=== PATIENT | female | born 1975 | race Caucasian/White ===

== ENCOUNTER 2019-11-05 09:10 | Emergency (ER) | payer OTHER ==
[~2019-11-05] VITALS: Ht 160 cm; Wt 47.6 kg
[2019-11-05 09:31] LABS: URINE BILIRUBIN NEGATIVE (Negative); URINE BLOOD NEGATIVE (Negative); URINE CLARITY CLEAR; URINE COLOR YELLOW; URINE GLUCOSE-RANDOM* NEGATIVE (Negative); URINE KETONES NEGATIVE (Negative); URINE LEUKOCYTES-REFLEX NEGATIVE (Negative); URINE NITRITE-REFLEX NEGATIVE (Negative); URINE PROTEIN (DIPSTICK) TRACE (Negative); URINE SPECIFIC GRAVITY >= 1.030 (1.005-1.035); URINE UROBILINOGEN 0.2 E.U./dl (0.2-1.0)
[2019-11-05 09:39] LABS: AMP/METHAMP POSITIVE (Negative); BARBITURATES Negative (Negative); BENZODIAZEPINES Negative (Negative); COCAINE Negative (Negative); METHADONE Negative (Negative); OPIATES Negative (Negative); PCP Negative (Negative)
[2019-11-05 10:18] LABS: ABSOLUTE NEUTROPHILS 4.7 thou/uL (1.4-8.2); BASOPHILS 0.5 % (0.0-2.0); EOSINOPHILS 2.1 % (0.0-3.0); HEMATOCRIT 42.7 % (37.0-47.0); HEMOGLOBIN 13.9 gm/dL (12.0-15.0); LYMPHOCYTES 30.6 % (24.0-44.0); MCH 30.1 pg (26.0-34.0); MCHC 32.6 g/dL (28.0-37.0); MCV 92.4 fL (80.0-100.0); MONOCYTES 6.3 % (1.0-8.0); PLATELET COUNT 258 thou/uL (150-400); POLYS 60.5 % (36.0-66.0); RBC 4.62 mil/uL (4.20-5.00); RDW 13.6 % (10.5-14.5); WBC 7.8 thou/uL (4.0-11.0)
[2019-11-05 10:19] LABS: CALCIUM 8.3 mg/dL (8.5-10.1); CREATININE 0.9 mg/dL (0.6-1.0)
[2019-11-05 10:25] LABS: ALBUMIN 3.4 g/dL (3.4-5.0); TOTAL BILIRUBIN 0.7 mg/dL (<0.1-1.0); TOTAL PROTEIN 6.7 g/dL (6.4-8.2)
[2019-11-05 10:59] VITALS: BP 178/112
[2019-11-05] MEDS ORDERED: MOBIC15 MG PO (20:11)
== END 2019-11-05 10:58 | disposition home or self-care (01) ==
LOC: ER 09:10
PROVIDERS: Emergency Medicine
DX: F19.10 Other psychoactive substance abuse, uncomplicated (principal); Z79.899 Other long term (current) drug therapy

== ENCOUNTER 2019-11-05 19:46 | Emergency (ER) | payer OTHER ==
[~2019-11-05] VITALS: Ht 160 cm; Wt 47.6 kg
[2019-11-05 19:49] VITALS: BP 134/109
[2019-11-05] MEDS ORDERED: MOBIC15 MG PO (20:11)
== END 2019-11-05 20:25 | disposition home or self-care (01) ==
LOC: ER 19:46
DX: S20.212A Contusion of left front wall of thorax, initial encounter (principal); S00.11XA Contusion of right eyelid and periocular area, initial encounter; I10 Essential (primary) hypertension; Y08.89XA Assault by other specified means, initial encounter; Y93.39 Activity, other involving climbing, rappelling and jumping off; Y92.89 Other specified places as the place of occurrence of the external cause; Y99.8 Other external cause status